=== PATIENT | male | born 1970 | race Caucasian/White ===

== ENCOUNTER 2018-04-09 12:09 | Emergency (ER) | payer OTHER ==
[2018-04-09 14:41] LABS: BASO % 0.4 % (0.0-1.0); HEMATOCRIT 47.4 % (42.0-52.0); HEMOGLOBIN 16.4 g/dl (13.5-17.5); IMMATURE GRANULOCYTE % 0.2 % (0-3.0); LYMPH # 1.3 10^3/uL (1.5-4.5); LYMPH % 14.9 % (24.0-44.0); MEAN CORPUSCULAR HEMOGLOBIN 30.3 pg (27.0-33.0); MEAN CORPUSCULAR HGB CONC 34.6 g/dl (32.0-36.5); MEAN CORPUSCULAR VOLUME 87.5 fl (80.0-96.0); MONO # 0.6 10^3/uL (0.0-0.8); MONO % 7.1 % (0.0-5.0); NEUTROPHILS # 6.6 10^3/uL (1.8-7.7); NEUTROPHILS % 77.4 % (36.0-66.0); PLATELET COUNT, AUTOMATED 255 10^3/uL (150-450); RED BLOOD COUNT 5.42 10^6/uL (4.30-6.10); RED CELL DISTRIBUTION WIDTH 12.3 % (11.5-14.5); WHITE BLOOD COUNT 8.5 10^3/uL (4.0-10.0)
[2018-04-09] MEDS: NS 1,000 ML IV (14:45)
[2018-04-09] MEDS: METOCLOPRAMIDE INJ 10MG/2ML VIAL (J2765) IV (14:45)
[2018-04-09] MEDS: KETOROLAC 30 MG/ML VIAL (J1885) IV (14:45)
[2018-04-09] MEDS: diphenhydrAMINE INJ 50MG/ML VIAL (J1200) IV (14:46)
[2018-04-09 14:58] LABS: ALBUMIN 3.7 GM/DL (3.2-5.2); ALBUMIN/GLOBULIN RATIO 0.88 (1.00-1.93); ALKALINE PHOSPHATASE 88 U/L (45-117); ALT/SGPT 20 U/L (12-78); ANION GAP 7 MEQ/L (8-16); AST/SGOT 17 U/L (7-37); BILIRUBIN,DIRECT 0.2 MG/DL (0.0-0.2); BILIRUBIN,TOTAL 1.4 MG/DL (0.2-1.0); BLOOD UREA NITROGEN 14 MG/DL (7-18); CALCIUM LEVEL 8.7 MG/DL (8.5-10.1); CARBON DIOXIDE LEVEL 26 MEQ/L (21-32); CHLORIDE LEVEL 101 MEQ/L (98-107); CREATININE FOR GFR 1.06 MG/DL (0.70-1.30); GLOMERULAR FILTRATION RATE > 60.0 (>60); GLUCOSE, FASTING 110 MG/DL (70-100); LIPASE 102 U/L (73-393); POTASSIUM SERUM 3.9 MEQ/L (3.5-5.1); SODIUM LEVEL 134 MEQ/L (136-145); THYROID STIMULATING HORMONE 0.705 uIU/ML (0.358-3.740); TOTAL PROTEIN 7.9 GM/DL (6.4-8.2)
[2018-04-09 15:03] LABS: AMMONIA < 10 uMOL/L (<32)
[2018-04-09] MEDS: MORPHINE 4 MG/ML 1ML VIAL/SYRINGE (J2270) IV (15:34)
[2018-04-09 15:44] LABS: KETONE, URINE AUTO RFX NEGATIVE (NEGATIVE); LEUKOCYTE ESTERASE UR AUTO RFX NEGATIVE (NEGATIVE); NITRITE, URINE AUTO RFX NEGATIVE (NEGATIVE); RBC, URINE AUTO RFX 1 /HPF (0-3); SPECIFIC GRAVITY UR AUTO RFX 1.002 (1.002-1.035); SQUAM EPITHELIAL CELL UR AURFX 0 /HPF (0-6); WBC, URINE AUTO RFX 1 /HPF (0-3)
== END 2018-04-09 17:33 | disposition home or self-care (01) ==
LOC: M ED 12:09
DX: G44.209 Tension-type headache, unspecified, not intractable (principal); M50.321 Other cervical disc degeneration at C4-C5 level; R50.9 Fever, unspecified; R11.10 Vomiting, unspecified; I10 Essential (primary) hypertension; E78.5 Hyperlipidemia, unspecified; G47.00 Insomnia, unspecified; Z79.899 Other long term (current) drug therapy
CPT/HCPCS: J2270

== ENCOUNTER → 2019-07-10 | Outpatient (CLI) | payer OTHER ==
[~2019-07-10] MED LIST: ATOR1TAB21 PO; LISI-538 PO; TRAZ-252 PO
--- NOTE | 2019-07-16 08:02 | SLEEPCENT ---
DATE OF STUDY: 07/10/2019 ORDERED BY: Oralia Oscar Nocturnal polysomnography was performed for evaluation of sleep physiology in this patient with a history of excessive somnolence and nonrestorative sleep who has comorbidity of hypertension. 8 hours and 6 minutes of data were reviewed. There were 445 minutes of sleep identified. Sleep latency was short at 2 minutes. Rapid eye movement (REM) latency was normal at 56.5 minutes. Sleep architecture was good with 5 REM cycles. Overall sleep efficiency was 93.5%. The electrocardiogram shows a sinus rhythm with an average heart rate of 55 beats per minute. Rate ranged 45-75. Electroencephalogram (EEG) showed normal waveforms for awake and sleep. There were 102 respiratory events identified of 10 seconds in duration or greater for an apnea-hypopnea index of 13.8. The events were primarily obstructive, not exclusive to sleep stage nor body posture. Arousals from respiratory events occurred 6.5 times per hour and oxygen desaturations were seen into the low 80s. There was scattered limb activity noted as well. Limb movement arousal index was 4. IMPRESSION: Obstructive sleep apnea syndrome (G47.33). Apnea-hypopnea index 13.8. RECOMMENDATION: The patient should be encouraged to return to the sleep disorder center for pressure therapy. In the interim, alcohol and sedative avoidance should be practiced and caution exercised during the operation of motor vehicles.
== END ==
LOC: M SLEEP 19:38
PROVIDERS: ATTEND Nurse Practitioner Family
DX: R06.83 Snoring (principal)

== ENCOUNTER → 2019-08-18 | Outpatient (CLI) | payer OTHER ==
--- NOTE | 2019-08-20 10:29 | SLEEPCENT ---
DATE OF PROCEDURE: 08/18/2019 ORDERED BY: Oralia Oscar NP Nocturnal polysomnography was performed for the titration of pressure therapy in this patient with obstructive sleep apnea syndrome. Apnea-hypopnea index 13.8. For testing a BONDvida nasal pillows device of medium/large size was used, 4 cm of water pressure were applied circuit and the lights were extinguished. 7 hours and 25 minutes of data were reviewed. There were 407 minutes of sleep identified. Sleep latency was short of 5.5 minutes. Rapid eye movement (REM) latency was delayed at 182 minutes. Sleep architecture did improve late in the study. There was one REM cycle. Overall sleep efficiency 92.3%. The patient's electrocardiogram shows sinus rhythm with an average heart rate of 50 beats per minute. Electroencephalogram (EEG) showed reasonably normal waveforms for awake and sleep. Respiratory events were fully palliated with C-PAP of pressure of +6. There was some scattered limb activity, and remaining measures of sleep physiology were normal. IMPRESSION: Obstructive sleep apnea syndrome (G47.33). RECOMMENDATIONS: Nightly use of pressure therapy 6 cm of water.
== END ==
LOC: M SLEEP 19:12
PROVIDERS: ATTEND Nurse Practitioner Family
DX: G47.33 Obstructive sleep apnea (adult) (pediatric) (principal)

== ENCOUNTER 2020-05-22 04:43 | Emergency (ER) | payer OTHER ==
[~2020-05-22] VITALS: Ht 172.7 cm; Wt 113.6 kg
[2020-05-22 05:30] LABS: BASO # 0.1 10^3/uL (0.0-0.2); BASO % 0.6 % (0.0-1.0); EOS # 0.3 10^3/uL (0.0-0.5); EOS % 3.8 % (0.0-3.0); HEMOGLOBIN 17.6 g/dl (13.5-17.5); LYMPH # 1.6 10^3/uL (1.5-5.0); LYMPH % 17.6 % (24.0-44.0); MEAN CORPUSCULAR HGB CONC 33.2 g/dl (32.0-36.5); MEAN CORPUSCULAR VOLUME 90.3 fl (80.0-96.0); MONO # 0.8 10^3/uL (0.0-0.8); MONO % 9.3 % (0.0-5.0); NEUTROPHILS # 6.1 10^3/uL (1.5-8.5); NEUTROPHILS % 68.5 % (36.0-66.0); PLATELET COUNT, AUTOMATED 223 10^3/uL (150-450); RED BLOOD COUNT 5.87 10^6/uL (4.30-6.10); WHITE BLOOD COUNT 8.9 10^3/uL (4.0-10.0)
[2020-05-22 05:45] LABS: ALBUMIN 3.8 GM/DL (3.2-5.2); ALT/SGPT 33 U/L (12-78); BILIRUBIN,DIRECT < 0.1 MG/DL (0.0-0.2); BILIRUBIN,TOTAL 0.5 MG/DL (0.2-1.0); LIPASE 100 U/L (73-393); TOTAL PROTEIN 7.9 GM/DL (6.4-8.2)
[2020-05-22] MEDS ORDERED: ENALAPRILAT INJ 2.5MG/2ML VIAL IV ONE (06:30)
[2020-05-22] MEDS ORDERED: ISOVUE-370 76% 100ML VIAL As Ordered ONE (06:32)
[2020-05-22] MEDS ORDERED: KETOROLAC 30 MG/ML 1ML VIAL IV ONE (07:15)
[2020-05-22 07:54] VITALS: BP 193/111
[2020-05-22] MEDS ORDERED: lisinopriL 20 MG TAB PO ONE (08:00)
--- NOTE | 2020-05-22 08:09 | REPVR ---
PROCEDURE INFORMATION: Exam: CT Abdomen And Pelvis With Contrast Exam date and time: 05/22/2020 7:28 AM Age: 50 years old Clinical indication: Abdominal pain; Generalized; Additional info: Back and abd pain TECHNIQUE: Imaging protocol: Computed tomography of the abdomen and pelvis with intravenous contrast. Radiation optimization: All CT scans at this facility use at least one of these dose optimization techniques: automated exposure control; mA and/or kV adjustment per patient size (includes targeted exams where dose is matched to clinical indication); or iterative reconstruction. Contrast material: ISOVUE 370; Contrast volume: 100 ml; Contrast route: INTRAVENOUS (IV); COMPARISON: No relevant prior studies available. FINDINGS: Pleural space: Minimal pleural parenchymal scarring lower lungs. Liver: Normal. No mass. Gallbladder and bile ducts: Normal. No calcified stones. No ductal dilation. Pancreas: Normal. No ductal dilation. Spleen: Normal. No splenomegaly. Adrenals: Normal. No mass. Kidneys and ureters: Minor perinephric soft tissue stranding. No hydronephrosis. No abnormal calcification. Stomach and bowel: Distal colonic diverticulosis. Appendix: No evidence of appendicitis. Intraperitoneal space: Unremarkable. No free air. No significant fluid collection. Vasculature: Unremarkable. No abdominal aortic aneurysm. Lymph nodes: Unremarkable. No enlarged lymph nodes. Bladder: Unremarkable as visualized. Reproductive: Unremarkable as visualized. Bones/joints: Mild degenerative change of the spine. Soft tissues: Unremarkable. IMPRESSION: 1. Distal colonic diverticulosis. 2. Mild degenerative change of the spine. Electronically signed by: Deborah Das On 05/22/2020 08:09:25 AM
[2020-05-22] MEDS ORDERED: CYCL-707 PO (08:19)
[2020-05-22] MEDS ORDERED: CYCLOBENZAPRINE 10MG TABLET PO ONE (08:30)
== END 2020-05-22 08:45 | disposition home or self-care (01) ==
LOC: M ED 04:43
DX: I10 Essential (primary) hypertension (principal); M54.9 Dorsalgia, unspecified; E78.5 Hyperlipidemia, unspecified; K57.30 Diverticulosis of large intestine without perforation or abscess without bleeding; Z79.899 Other long term (current) drug therapy
CPT/HCPCS: 74177; 80047; 80076; 81001; 83690; 85025; 96374; 96375; 99284; J1885; Q9967

== ENCOUNTER 2024-01-25 18:50 | Emergency (ER) | payer OTHER ==
[~2024-01-25] VITALS: Ht 172.7 cm; Wt 128.2 kg
[~2024-01-25 18:50] MED LIST changes: +CYCL-707 PO; -LISI-538 PO; +LISI20TA33 PO
[2024-01-25] MEDS: hydrALAZINE 20MG/ML 1ML VIAL IV STA ×2 (20:25→20:55)
[2024-01-25 20:32] LABS: BASO # 0.1 10^3/uL (0.0-0.2); BASO % 0.7 % (0.0-1.0); EOS # 0.3 10^3/uL (0.0-0.5); EOS % 3.4 % (0.0-3.0); HEMOGLOBIN 17.1 g/dl (13.5-17.5); LYMPH # 2.5 10^3/uL (1.5-5.0); LYMPH % 26.1 % (24.0-44.0); MEAN CORPUSCULAR HEMOGLOBIN 30.3 pg (27.0-33.0); MEAN CORPUSCULAR HGB CONC 34.2 g/dl (32.0-36.5); MEAN CORPUSCULAR VOLUME 88.7 fl (80.0-96.0); MONO # 0.7 10^3/uL (0.0-0.8); MONO % 7.4 % (2.0-8.0); NEUTROPHILS # 5.8 10^3/uL (1.5-8.5); NEUTROPHILS % 62.2 % (36.0-66.0); PLATELET COUNT, AUTOMATED 228 10^3/uL (150-450); RED BLOOD COUNT 5.64 10^6/uL (4.30-6.10); WHITE BLOOD COUNT 9.4 10^3/uL (4.0-10.0)
[2024-01-25 20:55] VITALS: BP 231/135
[2024-01-25 20:56] LABS: ALBUMIN 3.7 G/DL (3.2-5.2); ALKALINE PHOSPHATASE 86 U/L (46-116); ALT/SGPT 21 U/L (7.0-40); AST/SGOT 24 U/L (<34); BILIRUBIN,DIRECT 0.3 MG/DL (<0.4); BILIRUBIN,TOTAL 1.1 MG/DL (0.3-1.2); BLOOD UREA NITROGEN 14 MG/DL (9-23); CALCIUM LEVEL 8.4 MG/DL (8.5-10.1); CARBON DIOXIDE LEVEL 25 MMOL/L (20-31); CHLORIDE LEVEL 106 MMOL/L (98-107); CREATININE FOR GFR 1.01 MG/DL (0.70-1.30); GLOMERULAR FILTRATION RATE > 60.0 (>56); GLUCOSE, FASTING 84 MG/DL (60-100); POTASSIUM SERUM 3.9 MMOL/L (3.5-5.1); SODIUM LEVEL 140 MMOL/L (136-145); TOTAL PROTEIN 7.1 G/DL (5.7-8.2)
[2024-01-25 20:59] LABS: FREE T4 1.06 NG/DL (0.89-1.76); THYROID STIMULATING HORMONE 1.592 uIU/ML (0.55-4.78)
[2024-01-25] MEDS ORDERED: LISI20TA33 PO (23:23)
[2024-01-25 23:39] VITALS: BP 119/65; TEMP 97.6; O2SAT 96
== END 2024-01-26 00:07 | disposition home or self-care (01) ==
LOC: M ED 18:50
DX: I10 Essential (primary) hypertension (principal); F43.0 Acute stress reaction; E78.5 Hyperlipidemia, unspecified
CPT/HCPCS: 71045; 80048; 80076; 83880; 84439; 84443; 85025; 93005; 93041; 94760; 96374; 96376; 99285; J0360